=== PATIENT | male | born 1995 | race African-American/Black ===

== ENCOUNTER → 2021-05-29 | Outpatient (CLI) | payer BC ==
[~2021-05-29] VITALS: Ht 180.3 cm; Wt 71.7 kg
[~2021-05-29] MED LIST: BIKTARVY 30-121 EACH PO
[2021-05-29 07:05] VITALS: BP 118/72; PULSE 81; TEMP 98.8
[2021-05-29 08:00] VITALS: BP 126/79; PULSE 88
== END ==
LOC: COL.RAD 06:45
DX: R59.0 Localized enlarged lymph nodes (principal)
CPT/HCPCS: 32108